=== PATIENT | female | born 1995 | race Two or more races ===

== ENCOUNTER 2019-12-10 15:46 | Inpatient (IN) | payer OTHER ==
[~2019-12-10] VITALS: Ht 170.2 cm; Wt 3.2 kg
[2019-12-11] MEDS ORDERED: ATABEX OB TABL1 EACH PO (08:46)
== END 2019-12-14 15:56 | disposition home or self-care (01) | DRG 788 ==
LOC: OBS/DEL 15:46 → LDR 22:00 → O/R 12-11 10:18 → OB/GYN 12-11 11:49 → SURG-SUITE 12-11 11:59
PROVIDERS: ADMIT Obstetrics & Gynecology; ATTEND Obstetrics & Gynecology
PROC: 4A0HXFZ Measurement of Products of Conception, Cardiac Rhythm, External Approach (ICD-10-PCS; 2019-12-10)
PROC: 10D00Z1 Extraction of Products of Conception, Low, Open Approach (ICD-10-PCS; principal; 2019-12-11 11:00)
DX: O76 Abnormality in fetal heart rate and rhythm complicating labor and delivery (principal); Z3A.39 39 weeks gestation of pregnancy; Z37.0 Single live birth